=== PATIENT | female | born 1970 | race Caucasian/White ===

== ENCOUNTER 2024-04-16 13:18 | Emergency (ER) | payer OTHER, SELFPAY ==
[2024-04-16 14:05] VITALS: BP 141/71; PULSE 83; RESP 16; TEMP 36.6; O2SAT 100
--- NOTE | 2024-04-16 14:10 | ED.UPPEXIN ---
HPI - Extremity Injury (Upper) General Chief Complaint: Extremity Injury, Upper Stated Complaint: L thumb lac Time Seen by Provider: 04/16/24 14:10 Focused HPI: This is a 54 year old female that presents to the ER for left thumb laceration sustained just prior to arrival. Reports bleeding and pain to the area. Denies decreased ROM or numbness. She is not up to date on tetanus. GENERAL: Well-appearing, well-nourished, and in no acute distress. HEAD: Normocephalic, atraumatic. CHEST: Clear to auscultation. ?No respiratory distress. HEART: Regular rate and rhythm.? SKIN: 1.5cm linear laceration into subcutaneous tissue to the left thumb proximal phalanx NEURO: ?Alert and oriented x3. Patient screened in triage and initial orders placed.? ?Additional care and disposition to be based upon?diagnostic testing and treatment. Course Vital Signs Vital signs: Vital Signs Temperature 97.9 F 04/16/24 14:05 Pulse Rate 83 04/16/24 14:05 Respiratory Rate 16 04/16/24 14:05 Blood Pressure 141/71 H 04/16/24 14:05 Pulse Oximetry 100 04/16/24 14:05 Oxygen Delivery Room Air 04/16/24 14:05 Temperature 97.9 F 04/16/24 14:05 Pulse Rate 83 04/16/24 14:05 Respiratory Rate 16 04/16/24 14:05 Blood Pressure 141/71 H 04/16/24 14:05 Pulse Oximetry 100 04/16/24 14:05 Oxygen Delivery Room Air 04/16/24 14:05
[2024-04-16] MEDS: TETANUS,DIPHTHERIA,AC PERTUSSIS ADULT (0.5 ML) BOOSTRIX IM (15:48)
--- NOTE | 2024-04-16 17:10 | ED.UPPEXIN ---
HPI - Extremity Injury (Upper) General Chief Complaint: Extremity Injury, Upper Stated Complaint: L thumb lac Time Seen by Provider: 04/16/24 14:10 History of Present Illness HPI narrative: This is a 54-year-old female who presents to the emergency department for evaluation of a left thumb laceration. Patient was using a new facial raise when she accidentally slipped her left finger and cut just proximal to the interphalangeal joint on her left thumb, proximally. Bleeding was well controlled prior to arrival. She is not sure for tenses up today. Denies any other injuries or somatic complaints. Related Data Allergies Allergy/AdvReac Type Severity Reaction Status Date / Time ibuprofen Allergy Nausea and Verified 04/16/24 15:47 Vomiting Review of Systems Review of Systems: As reviewed above in HPI Exam Narrative: GENERAL: [Well-appearing, well-nourished, and in no acute distress.] HEAD: [Normocephalic, atraumatic.] EYES: [PERRLA and EOMI.] CHEST: Symmetric chest rise HEART: [Regular rate and rhythm]. No murmur heard. [Normal peripheral pulses.] EXTREMITIES: Normal range of motion. [No edema.] SKIN: There is a 1.0 cm laceration just proximal to the interphalangeal joint of the left thumb. No musculature or tendon exposure. Full range of motion of the thumb, able to flex and extend at the MCP joint and flex and extend at the IP joint. Bleeding well controlled. NEURO: [No focal deficits]. Alert and oriented [x3.] Course Vital Signs Vital signs: Vital Signs Temperature 36.6 C 04/16/24 14:05 Pulse Rate 83 04/16/24 14:05 Respiratory Rate 16 04/16/24 14:05 Blood Pressure 141/71 H 04/16/24 14:05 Pulse Oximetry 100 04/16/24 14:05 Oxygen Delivery Room Air 04/16/24 14:05 Temperature 36.6 C 04/16/24 14:05 Pulse Rate 83 04/16/24 14:05 Respiratory Rate 16 04/16/24 14:05 Blood Pressure 141/71 H 04/16/24 14:05 Pulse Oximetry 100 04/16/24 14:05 Oxygen Delivery Room Air 04/16/24 14:05 Procedures Laceration Laceration 1: Date: 08/26/24 Time: 17:13 Site: hand Side (If applicable): left Size (cm): 1.0 Description: linear Depth: simple, single layer Local Anesthetic: none Pre-repair: wound explored and irrigated ====== Skin Level ====== Skin layer closed with: dermabond ====== Subcutaneous Layer ====== ====== Muscle Layer ====== ====== Tendon Layer ====== Dressing: Non adherent dressing with gauze over top. MDM - Extremity Injury (Upper) MDM Narrative Medical decision making narrative: This is a 54-year-old female sustaining a laceration to her left thumb just proximal to the IP joint. Neurovascular status intact with full range of motion of the thumb. Bleeding controlled. Injuries very superficial in nature does not require stitches. Will be repaired primarily with Dermabond. Please see procedure note above for documentation. Patient's tetanus was updated here in the emergency department and she was stable for discharge home after non adherent dressing was applied over top. Patient's questions were answered and she will follow up regularly with her primary care provider. Discharge Plan Discharge Clinical Impression: Laceration of left thumb Patient Disposition: Home, Self-Care Condition: Stable Instructions: Antibiotic Form, Laceration (ED) Time of Disposition: 17:14
--- NOTE | 2024-04-16 18:01 | PCCCNOTE ---
Cab voucher given d/t the last [facility] leaving at [id number].
[2024-04-16 18:17] VITALS: BP 122/74; PULSE 77; O2SAT 99
== END 2024-04-16 18:19 | disposition home or self-care (01) ==
PROVIDERS: Emergency Provider Student in an Organized Health Care Education/Training Program
DX: S61.012A Laceration without foreign body of left thumb without damage to nail, initial encounter (principal); W26.8XXA Contact with other sharp object(s), not elsewhere classified, initial encounter; Z23 Encounter for immunization
CPT/HCPCS: 12001; 90715; 99282